=== PATIENT | male | born 1950 | race Caucasian/White ===

== ENCOUNTER 2016-08-30 03:09 | Emergency (ER) | payer SELFPAY ==
[2016-08-30 03:23] VITALS: BP 142/66; PULSE 114; RESP 17; O2SAT 98
[2016-08-30] MEDS ORDERED: Sodium Chloride 0.9% 1,000 ML IV STA (03:29)
--- NOTE | 2016-08-30 04:22 | ED PDOC ---
HPI: Fever Fever Onset Was: 08/28/16 (Intermittent) The Fever Was Measured: Oral Recent Sick Contacts: No Have you had recent travel within the past 21 days to any of the following countries: [place], [place], [place] or [place]?: No Does Patient Have Hx Of Febrile Seizures: No Did The Patient Have A Seizure Today: No Symptoms Associated With Fever: denies: Vomiting, Cough Additional Comments: 66 year old male presents to ED with complaints of intermittent fever x2 days and has a past medical history of HTN and prostatic hypertrophy. (+) nausea, (-) vomiting, cough, headache, urinary symptoms. Patient confirms taking Nyquil and denies all other symptoms. PCP: SANTINO (Yvonne) Past Medical History Reviewed: Historical Data, Nursing Documentation, Vital Signs Vital Signs: Last Vital Signs Temp 99.8 F H 08/30/16 04:57 Pulse 114 H 08/30/16 03:16 Resp 17 08/30/16 03:16 BP 142/66 08/30/16 03:16 Pulse Ox 98 08/30/16 06:23 - Medical History Other PMH: Prostatic hypertrophy - Surgical History Surgical History: No Surg Hx - Family History Family History: States: No Known Family Hx - Home Medications Home Medications: Ambulatory Orders Medication Instructions Recorded Ibuprofen [Motrin Tab] 600 mg PO Q6 #30 tab 08/30/16 Sulfamethoxazole/Trimethoprim 1 tab PO BID 7 Days 08/30/16 [Bactrim DS 800 mg-160 mg] - Allergies Allergies/Adverse Reactions: Allergies Allergy/AdvReac Type Severity Reaction Status Date / Time No Known Allergies Allergy Verified 08/30/16 03:21 Review of Systems ROS Statement: Except As Marked, All Systems Reviewed And Found Negative Constitutional: Positive for: Fever Respiratory: Negative for: Cough Gastrointestinal: Positive for: Nausea. Negative for: Vomiting Genitourinary Male: Negative for: Dysuria, Frequency, Incontinence, Hematuria Neurological: Negative for: Headache Physical Exam - Reviewed Nursing Documentation Reviewed: Yes Vital Signs Reviewed: Yes - Physical Exam Appears: Positive for: Non-toxic, No Acute Distress Skin: Positive for: Normal Color, Warm Eye Exam: Positive for: Normal appearance, EOMI, PERRL Neck: Positive for: Normal, Painless ROM, Supple Cardiovascular/Chest: Positive for: Regular Rate, Rhythm. Negative for: Murmur Respiratory: Positive for: Normal Breath Sounds. Negative for: Respiratory Distress Gastrointestinal/Abdominal: Positive for: Soft. Negative for: Tenderness Back: Positive for: Normal Inspection Extremity: Positive for: Tenderness. Negative for: Deformity Neurologic/Psych: Positive for: Alert, Oriented. Negative for: Motor/Sensory Deficits - Laboratory Results Result Diagrams: 08/30/16 03:45 08/30/16 03:45 - ECG O2 Sat by Pulse Oximetry: 98 (RA) Pulse Ox Interpretation: Normal Medical Decision Making Medical Decision Makin Initial impression: unspecified fever Initial plan: * Lactic Acid * Labs * CXR * Ibuprofen 600mg PO * NS IV * Zofran Inj 4mg IVP * BCx * UCx * UA * Re-eval 0600 Upon re-evaluation, patient is feeling much better and is medically stable and ready for discharge. Counseling has been provided and patient is in agreement. Return if symptoms persist or acutely worsen. Scribe Attestation: Documented by Sara Tang acting as a scribe for Bebo Porter MD. Scribe Attestation: All medical record entries made by the Scribe were at my direction and personally dictated by me. I have reviewed the chart and agree that the record accurately reflects my personal performance of the history, physical exam, medical decision making, and the department course for this patient. I have also personally directed, reviewed, and agree with the discharge instructions and disposition. Disposition - Clinical Impression Clinical Impression: UTI (urinary tract infection) - Disposition Referrals: [facility] [Outside] Disposition: Routine/Home Disposition Time: 06:00 Condition: STABLE Prescriptions: Ibuprofen [Motrin Tab] 600 mg PO Q6 #30 tab Sulfamethoxazole/Trimethoprim [Bactrim DS 800 mg-160 mg] 1 tab PO BID 7 Days Instructions: Urinary Tract Infection in Men (ED)
[2016-08-30 04:29] LABS: ALB/GLOB RATIO 1.3 (1.0-2.1); ALBUMIN 4.2 g/dL (3.5-5.0); ALT/SGPT 35 U/L (21-72); AST/SGOT 22 U/L (17-59); BASO % 0.6 % (0.0-2.0); BLOOD UREA NITROGEN 15 mg/dl (9-20); CALCIUM 8.7 mg/dL (8.4-10.2); EOS % 0.2 % (0.0-4.0); GFR AFRICAN-AMERICAN > 60; GFR NON-AFRICAN AMERICAN > 60; HEMOGLOBIN 14.3 g/dL (12.0-18.0); LYMPH # 0.5 K/uL (1.0-4.3); LYMPH % 6.1 % (20.0-40.0); MEAN CELL VOLUME 86.3 fl (80.0-94.0); MEAN CORPUSCULAR HGB CONC 33.6 g/dL (33.0-37.0); MEAN PLATELET VOLUME 9.4 fl (7.2-11.7); MONO # 0.4 K/uL (0.0-0.8); NEUT # 7.2 K/uL (1.8-7.0); NEUT % 88.1 % (50.0-75.0); PLATELET COUNT 145 K/uL (130-400); RBC 4.92 Mil/uL (4.40-5.90); RED CELL DISTRIBUTION WIDTH 13.3 % (11.5-14.5); WHITE BLOOD COUNT 8.2 K/uL (4.8-10.8)
[2016-08-30 04:57] VITALS: TEMP 99.8
[2016-08-30 05:14] LABS: SQUAMOUS EPITHIAL < 1 /hpf (0-5); URINE BACTERIA RARE (<OCC); URINE BILIRUBIN NEGATIVE (NEGATIVE); URINE BLOOD MODERATE (NEGATIVE); URINE CLARITY SLIGHTY-CLOUDY (Clear); URINE COLOR YELLOW (YELLOW); URINE GLUCOSE (UA) NEG (Normal); URINE LEUKOCYTE ESTERASE MOD Leu/uL (Negative); URINE NITRATE POSITIVE (NEGATIVE); URINE PROTEIN 30 mg/dL (NEGATIVE); URINE UROBILINOGEN 0.2-1.0 mg/dL (0.2-1.0)
[2016-08-30] MEDS ORDERED: cefTRIAXone (Rocephin) 1 gm Inj ONE (05:22)
[2016-08-30 07:10] LABS: BANDS 1 % (0-2); LYMPHOCYTE 6 % (20-50); MONOCYTE 2 % (0-10); NEUTROPHIL 91 % (42-75); TOTAL CELLS COUNTED 100
[2016-08-30 07:11] LABS: ANISOCYTOSIS SLIGHT; BURR CELLS SLIGHT; PLATELET ESTIMATE NORMAL (NORMAL)
[2016-08-30 07:12] LABS: TEARDROP CELLS SLIGHT
[2016-08-30 07:13] LABS: LARGE PLATELETS PRESENT
--- NOTE | 2016-08-30 09:16 | RAD ---
HISTORY: fever COMPARISON: No prior. FINDINGS: LUNGS: No focal airspace opacity. PLEURA: No significant pleural effusion identified, no pneumothorax apparent. CARDIOVASCULAR: Normal. OSSEOUS STRUCTURES: The osseous structures demonstrate degenerative changes. VISUALIZED UPPER ABDOMEN: Upper abdomen is suboptimally evaluated. OTHER FINDINGS: None. IMPRESSION: No focal airspace opacity.
== END 2016-08-30 06:53 | disposition home or self-care (01) ==
LOC: H.ER 03:09
DX: N39.0 Urinary tract infection, site not specified (principal); N40.0 Benign prostatic hyperplasia without lower urinary tract symptoms; I10 Essential (primary) hypertension
CPT/HCPCS: 71010; 80053; 81003; 83605; 85025; 87040; 87086; 87181; 96361; 96365; 96375; 99283; J0696; J2405; J7040